=== PATIENT | male | born 1960 | race Caucasian/White ===

== ENCOUNTER 2018-12-23 12:30 | Inpatient (IN) | payer OTHER ==
[~2018-12-23] VITALS: Ht 172.7 cm; Wt 104.4 kg
[2018-12-23 12:58] VITALS: Ht 172.7 cm; Wt 104.4 kg
[2018-12-23 14:11] LABS: BASOPHIL % 0.4 % (0-2)
[2018-12-23 14:15] LABS: CALCIUM 8.5 mg/dL (8.5-10.1); CARBON DIOXIDE 35.5 mmol/L (21-32); CHLORIDE SERUM 103 mmol/L (98-107); GFR1 > 60 mL/min; GLUCOSE SERUM 226 mg/dL (74-106); POTASSIUM SERUM 4.1 mmol/L (3.5-5.1); SODIUM SERUM 142 mmol/L (136-145)
[2018-12-23 14:22] LABS: ALKALINE PHOSPHATASE 111 U/L (46-116); ALT/SGPT 82 U/L (16-63); AST/SGOT 64 U/L (15-37); BILIRUBIN TOTAL 3.9 mg/dL (0.20-1.00); TOTAL PROTEIN, SERUM 6.8 g/dL (6.4-8.2)
[2018-12-23 14:24] LABS: ALBUMIN 3.1 g/dL (3.4-5.0)
[2018-12-23 15:04] LABS: PLATELET COUNT 62 x10^3mcL (130-400); RED CELL DISTRIBUTION WIDTH 14.7 % (11.5-14.5)
[2018-12-23] MEDS ORDERED: LASIX40 MG PO (15:59)
[2018-12-23] MEDS ORDERED: ALDACTONE50 MG PO (15:59)
[2018-12-23 16:00] LABS: microscopic required? YES; urine erythrocyte TRACE (NEGATIVE)
[2018-12-23] MEDS ORDERED: GLIPIZIDE5 M2 PO (16:00)
[2018-12-23] MEDS ORDERED: METOPROLOL SUCC50 M2 PO (16:00)
[2018-12-23] MEDS ORDERED: DILTIAZEM HYDR240 M1 PO (16:00)
[2018-12-23] MEDS ORDERED: XANAX0.5 MG PO (16:01)
[2018-12-23] MEDS ORDERED: KRISTALOSE10 GM/Pack PO (16:01)
[2018-12-23 18:03] VITALS: BP 116/75
[2018-12-23 20:48] VITALS: BP 124/91
[2018-12-24 09:56] VITALS: BP 113/72
[2018-12-24] MEDS ORDERED: DILTIAZEM HYDR240 M1 PO (10:02)
[2018-12-24] MEDS ORDERED: METOPROLOL SUCC50 M2 PO (10:02)
[2018-12-24] MEDS ORDERED: ALDACTONE50 MG PO (10:03)
[2018-12-24] MEDS ORDERED: GLIPIZIDE5 M2 PO (10:04)
[2018-12-24] MEDS ORDERED: LASIX40 MG PO (10:04)
[2018-12-24] MEDS ORDERED: KRISTALOSE10 GM/Pack PO (10:04)
[2018-12-24] MEDS ORDERED: CIPRO250 MG PO (10:05)
[2018-12-24] MEDS ORDERED: ASPIR 8181 MG PO (10:06)
[2018-12-24] MEDS ORDERED: DIGOXIN0.125 M1 PO (10:07)
[2018-12-24] MEDS ORDERED: XAN5 PO (11:16)
[2018-12-24 11:40] LABS: AMPHETAMINE QUAL UR NONE DETECTED (See below)
== END 2018-12-24 13:09 | disposition home or self-care (01) | DRG 309 ==
LOC: ED 12:30 → DU 16:20
PROVIDERS: Emergency Medicine; ADMIT Internal Medicine
DX: I48.91 Unspecified atrial fibrillation (principal); N39.0 Urinary tract infection, site not specified; E11.65 Type 2 diabetes mellitus with hyperglycemia; D69.59 Other secondary thrombocytopenia; K74.60 Unspecified cirrhosis of liver; B18.2 Chronic viral hepatitis C; M50.33 Other cervical disc degeneration, cervicothoracic region; M51.36 Other intervertebral disc degeneration, lumbar region; I10 Essential (primary) hypertension; F12.10 Cannabis abuse, uncomplicated; F41.9 Anxiety disorder, unspecified; Z79.82 Long term (current) use of aspirin; Z79.84 Long term (current) use of oral hypoglycemic drugs; Z91.14 Patient's other noncompliance with medication regimen; Z68.34 Body mass index [BMI] 34.0-34.9, adult
CPT/HCPCS: 82962; 84439; J0696; J1160; J1885; J2270; J3490; Q0092